=== PATIENT | female | born 1975 | race Caucasian/White ===

== ENCOUNTER 2021-08-20 22:09 | Emergency (ER) | payer SELFPAY ==
[~2021-08-20] VITALS: Ht 162.6 cm; Wt 61.2 kg
--- NOTE | 2021-08-20 22:20 | NUR ---
[id number] FROM HOME C/O "FACIAL TINGLINESS" S/P USING NEW NASAL CONGESTION SPRAY. -FACIAL DROOP -DRIFTS NOTED ALSO C/O MID EPIGASTRIC PAIN. PT A/OX4. TOLERATING R/A WELL WITH NO SOB. CONNECTED PT TO POX AND MONITOR.
--- NOTE | 2021-08-20 22:30 | NUR ---
URINE COLLECTED AND SENT TO LAB
[2021-08-20 22:45] LABS: BILIRUBIN,URINE NEGATIVE (NEGATIVE); COLOR,URINE YELLOW (YELLOW); LEUKOCYTE ESTERASE ,URINE NEGATIVE (NEGATIVE); NITRITE, URINE NEGATIVE (NEGATIVE); PROTEIN,URINE NEGATIVE (NEGATIVE); UGLUCOSE NEGATIVE (NEGATIVE); UROBILINOGEN,URINE 0.2 EU/dL (0.2)
[2021-08-20] MEDS ORDERED: ALPRAZOLAM 0.5 MG TABLET PO ONE (23:00)
[2021-08-20] MEDS ORDERED: ALPRAZOLAM 0.5 MG TABLET ONE (23:01)
[2021-08-20 23:05] LABS: BASOPHILS % (AUTO) 0.7 % (0.0-2.0); EOSINOPHILS % (AUTO) 1.5 % (0.0-6.0); HEMATOCRIT 39 % (33-45); HEMOGLOBIN 13.2 g/dL (11.5-14.8); LYMPHOCYTES # (AUTO) 1.9 K/uL (0.8-4.8); LYMPHOCYTES % (AUTO) 43.8 % (20.0-44.0); MEAN CORPUSCULAR HGB CONC 34 g/dl (31.0-36.0); MEAN CORPUSCULAR VOLUME 95 fL (82-100); MONOCYTES # (AUTO) 0.6 K/uL (0.1-1.30); MONOCYTES % (AUTO) 12.4 % (2.0-12.0); NEUTROPHILS # (AUTO) 1.8 K/uL (1.8-8.9); NEUTROPHILS % (AUTO) 41.6 % (43.0-81.0); PLATELET COUNT (AUTO) 159 K/uL (150-450); RED BLOOD CELL COUNT(AUTO) 4.16 MIL/uL (4.0-5.2); WHITE BLOOD COUNT (AUTO) 4.4 K/uL (4.3-11.0)
[2021-08-20 23:11] LABS: ALANINE AMINOTRANSFERASE 30 U/L (12-78); ALBUMIN 4.2 g/dL (3.4-5.0); ALKALINE PHOSPHATASE 87 U/L (46-116); ASPARTATE AMINOTRANSFERASE 20 U/L (15-37); BILIRUBIN,DIRECT 0.1 mg/dL (0.0-0.2); BILIRUBIN,TOTAL 0.3 mg/dL (0.2-1.0); CALCIUM, SERUM 9.3 mg/dL (8.5-10.1); CARBON DIOXIDE 26 mmol/L (21-32); CHLORIDE 104 mmol/L (98-107); GLUCOSE 98 mg/dL (74-106); LIPASE 77 U/L (73-393); POTASSIUM 3.5 mmol/L (3.5-5.1); SODIUM SERUM 136 mmol/L (136-145); TOTAL PROTEIN, SERUM 7.1 g/dL (6.4-8.2); UREA NITROGEN, BLOOD 15 mg/dL (7-18)
--- NOTE | 2021-08-20 23:18 | NUR ---
PT TRANSFERRING TO 3W VIA ACLS PROTOCOL
--- NOTE | 2021-08-20 23:41 | NUR ---
COVID ANTIGEN SWAB COLLECTED AND SENT TO LAB
--- NOTE | 2021-08-21 00:32 | NUR ---
GUIDE ESCORT AT PT'S BEDSIDE
--- NOTE | 2021-08-21 01:54 | NUR ---
Patient discharged to home in stable condition. Written and verbal after care instructions given. Patient verbalizes understanding of instruction. IV removed. Catheter intact and site benign. Pressure and 4x4 applied to site. No bleeding noted. pt ambulatory with a steady gait
[2021-08-21 01:55] VITALS: BP 90/60
== END 2021-08-21 01:56 | disposition home or self-care (01) ==
LOC: ER 22:13
DX: R20.0 Anesthesia of skin (principal); K59.00 Constipation, unspecified; R09.81 Nasal congestion; Z20.822 Contact with and (suspected) exposure to COVID-19; R94.31 Abnormal electrocardiogram [ECG] [EKG]
CPT/HCPCS: 36415 ×2; 70450; 71045; 74176; 80048; 80076; 81003; 83690; 84484 ×2; 84703; 85025; 85730; 87426; 93005; 99285; C9803